=== PATIENT | female | born 2000 | race Caucasian/White ===

== ENCOUNTER 2018-03-24 11:29 | Emergency (ER) | payer OTHER ==
[~2018-03-24] VITALS: Ht 172.7 cm; Wt 56.8 kg
[2018-03-24 11:43] VITALS: Ht 172.7 cm; Wt 56.8 kg
[2018-03-24] MEDS ORDERED: BIRTH CONTROL PILL (11:45)
[2018-03-24] MEDS ORDERED: HYDROCODON-ACE1 EAC7 PO (12:43)
[2018-03-24 13:33] VITALS: BP 114/70
== END 2018-03-24 13:28 | disposition home or self-care (01) ==
LOC: D.ER 11:29
DX: S16.1XXA Strain of muscle, fascia and tendon at neck level, initial encounter (principal); V80.010A Animal-rider injured by fall from or being thrown from horse in noncollision accident, initial encounter; Y93.52 Activity, horseback riding; Y92.019 Unspecified place in single-family (private) house as the place of occurrence of the external cause; R07.89 Other chest pain; S09.90XA Unspecified injury of head, initial encounter; S69.91XA Unspecified injury of right wrist, hand and finger(s), initial encounter